=== PATIENT | female | born 1965 | race Caucasian/White ===

== ENCOUNTER 2016-07-21 07:26 | Day surgery (SDC) | payer OTHER ==
[2016-07-21] MEDS ORDERED: Lactated Ringer's 500 ML IV ONE (08:04)
[2016-07-21] MEDS ORDERED: Propofol 10 mg/ml Inj (20 ML) ONE (08:23)
[2016-07-23 15:20] VITALS: BP 100/60; PULSE 62; RESP 14; TEMP 96.8; O2SAT 100
== END 2016-07-21 11:11 | disposition home or self-care (01) ==
LOC: H.ENDO 07:26
PROVIDERS: ATTEND Internal Medicine Gastroenterology
DX: Z12.11 Encounter for screening for malignant neoplasm of colon (principal); K64.8 Other hemorrhoids